=== PATIENT | male | born 2005 | race Caucasian/White ===

== ENCOUNTER 2023-12-17 15:22 | Outpatient (CLI) | payer BC, SELFPAY | END 2023-12-17 15:23 | disposition home or self-care (01) | PROVIDERS: Visit Provider Internal Medicine | DX: Z71.84 Encounter for health counseling related to travel (principal) | CPT/HCPCS: 80061; 82565; 82947; 84460; 84550 ==

== ENCOUNTER 2023-12-18 13:49 | Outpatient (CLI) | payer BC, SELFPAY | END 2023-12-18 13:50 | disposition home or self-care (01) | LOC: NFLDREF 12-20 04:13 | PROVIDERS: Visit Provider Internal Medicine | DX: Z71.84 Encounter for health counseling related to travel (principal) | CPT/HCPCS: 87086; 87186 ==

== ENCOUNTER 2024-11-01 08:24 | Outpatient (CLI) | payer OTHER, SELFPAY | END 2024-11-01 08:25 | disposition home or self-care (01) | PROVIDERS: PCP Family Medicine; Visit Provider Family Medicine | DX: Z13.6 Encounter for screening for cardiovascular disorders (principal); Z13.1 Encounter for screening for diabetes mellitus | CPT/HCPCS: 80061; 82947 ==

== ENCOUNTER 2025-05-23 15:37 | Outpatient (CLI) | payer OTHER, SELFPAY | END 2025-05-23 15:38 | disposition home or self-care (01) | PROVIDERS: PCP Family Medicine; Visit Provider Family Medicine | DX: Z86.19 Personal history of other infectious and parasitic diseases (principal) | CPT/HCPCS: 82784; 85651; 86140; 86703 ==